=== PATIENT | female | born 1950 ===

== ENCOUNTER → 2017-03-19 | Outpatient (CLI) | payer OTHER ==
--- NOTE | 2017-03-19 16:15 | RADIOLOGY IMAGING REPORT ---
FACILITY: [facility] [place] PATIENT NAME: Chandni Moore : 1950 MR: [id number] V: [id number] EXAM DATE: ORDERING PHYSICIAN: DAWNA ROY TECHNOLOGIST: Location: [facility] Patient: Chandni Moore : 1950 Visit/Account:[id number] Date of Sevice: 03/19/2017 PELVIC HISTORY: Uterine mass TECHNIQUE: Transabdominal and transvaginal ultrasound pelvis. COMPARISON: None. FINDINGS: Uterus: ; 5.1 cm length x 2.4 cm AP x 2.7 cm transverse. Myometrium: There is a right-sided fundal fibroid measuring 1.9 cm in diameter. There is an addition al left-sided fibroid along the lower body measuring 2 cm in diameter. Endometrium: Unremarkable; double thickness 1.4 mm. Cervix: Grossly negative. Ovaries: Right - normal-appearing right ovary is not seen. In the right adnexa there is a very large com plex mass measuring 12 x 14.5 x 10 cm Left - 1.4 x 1 x 1.7 cm Blood flow is documented in the left ovary by duplex Doppler ultrasound. Adnexa: Acute right adnexal mass. Free pelvic fluid: Mild. IMPRESSION: There are two uterine fibroids as described above largest measuring 2 cm There is a huge complex right adnexal mass measuring 12 x 14.5 x 10 cm. Limited should be excluded Report Dictated By: Shana Grant MD at 03/19/2017 3:13 PM Report E-Signed By: Shana Grant MD at 03/19/2017 4:12 PM WSN:[email or web address]
== END ==
LOC: US 13:15
PROVIDERS: ATTEND Family Medicine
DX: D25.9 Leiomyoma of uterus, unspecified (principal); R19.09 Other intra-abdominal and pelvic swelling, mass and lump
CPT/HCPCS: 76856

== ENCOUNTER → 2017-04-09 | Outpatient (CLI) | payer OTHER ==
--- NOTE | 2017-04-09 09:31 | EKG ---
FACILITY: [facility] PATIENT NAME: CHALO RUFFIN : [id number] MR: [id number] V: [id number] EXAM DATE: ORDERING PHYSICIAN: NO OTHER TECHNOLOGIST: AVIS Alberts Reason : PREOP-PELVIC MASS Blood Pressure : / mmHG Vent. Rate : 064 BPM Atrial Rate : 064 BPM P-R Int : 152 ms QRS Dur : 088 ms QT Int : 402 ms P-R-T Axes : 057 033 053 degrees QTc Int : 414 ms Sinus rhythm Decreased R wave progression anteriorly No acute appearing findings No previous ECGs available Confirmed by TEX LYN ([id number]) on 04/09/2017 12:56:12 PM Referred By: Confirmed By:TEX LYN
== END ==
LOC: RESP 09:19
PROVIDERS: ATTEND Obstetrics & Gynecology Gynecologic Oncology
DX: R19.00 Intra-abdominal and pelvic swelling, mass and lump, unspecified site (principal)
CPT/HCPCS: 93005

== ENCOUNTER → 2017-05-18 | Outpatient (REF) | payer OTHER | LOC: ZZSENDIN 13:12 | PROVIDERS: ATTEND Obstetrics & Gynecology | DX: R03.0 Elevated blood-pressure reading, without diagnosis of hypertension (principal) | CPT/HCPCS: 82310; 82374; 82435; 82565; 82947; 84132; 84295; 84520 ==